=== PATIENT | female | born 2005 | race Caucasian/White ===

== ENCOUNTER 2023-03-25 15:23 | Outpatient (REF) | payer BC, OTHER, SELFPAY ==
--- NOTE | ~2023-03-25 | MR_ITS ---
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 Repetitive motion. Pain/discomfort in the shoulders bilaterally. COMPARISON: None. TECHNIQUE: MR images of the shoulder were obtained on a 1.5 Mihaela high-field strength scanner without intravenous contrast material. FINDINGS: ROTATOR CUFF: Rotator cuff is intact without significant tendinosis. Trace edema signal in the overlying subacromial subdeltoid bursa. No tears. No muscle atrophy or fatty infiltration. BICEPS: Normal CORACOACROMIAL ARCH: The undersurface of the acromion is curved with no subacromial spur. The acromioclavicular joint is normal. Trace edema signal in the subacromial subdeltoid bursa without significant fluid. LABRUM/CAPSULE: A cleft undercutting the anterosuperior glenoid labrum between the 1 o'clock position and 2 o'clock position is most consistent with a sublabral foramen. No discrete tears. The remainder the labrum is normal in appearance. Joint capsule is unremarkable. GLENOHUMERAL JOINT/MARROW: No fracture or malalignment. Marrow signal is normal. Articular cartilage appears well-preserved. No joint effusion or synovitis. No loose bodies. Humeral head is appropriately positioned at the glenohumeral joint. MR/MR shoulder LT wo con IMPRESSION: Trace edema signal in the subacromial subdeltoid bursa and subacromial subdeltoid bursa, potentially due to very mild bursitis. Otherwise normal MRI of the shoulder.
--- NOTE | ~2023-03-25 | MR_ITS ---
EXAMINATION: MR SHOULDER WITHOUT CONTRAST, RIGHT CLINICAL INFORMATION: Shoulder pain. Sports injury. Swimming. COMPARISON: None available. TECHNIQUE: MRI of the shoulder without contrast was performed on a high-field scanner. FINDINGS: ROTATOR CUFF: There is mild tendinosis of the supraspinatus, infraspinatus, and subscapularis. No tears. No muscle atrophy or fatty infiltration. BICEPS: Normal. CORACOACROMIAL ARCH: The undersurface of the acromion is curved with no subacromial spur. The acromioclavicular joint is normal. Trace subacromial subdeltoid bursitis. LABRUM/CAPSULE: There is a cleft undercutting the anterosuperior glenoid labrum, most consistent with a sublabral foramen. This does not extend below the 2 o'clock position. No discrete labral tears. Joint capsule is normal in signal intensity. GLENOHUMERAL JOINT/MARROW: Articular cartilage appears well-preserved. No fracture or malalignment. No joint effusion. Marrow signal is normal. MR/MR shoulder RT wo con IMPRESSION: 1. Mild rotator cuff tendinosis. No tears. 2. Trace subacromial subdeltoid bursitis.
== END 2023-03-25 15:24 | disposition home or self-care (01) ==
LOC: HO.MRI 15:23
PROVIDERS: Visit Provider Family Medicine Sports Medicine
DX: M25.511 Pain in right shoulder (principal); M25.512 Pain in left shoulder
CPT/HCPCS: 73221

== ENCOUNTER 2025-03-16 06:46 | Outpatient (REF) | payer BC, OTHER, SELFPAY ==
--- OUTSIDE RECORDS SUMMARY | 2019-12-14 10:00 | XMS_ITS | Continuity of Care Document ---
Author Organization [facility] Address [address] [place] [address] Phone Care Team Providers [facility] Shift Lead Name Role Phone Struebing PT, CMDT, CSCS, Ritesh Unavailable Unavailable Procedures Procedure Date Therapeutic Activities Therapeutic Exercise Neuromuscular Re-Ed Vasopneumatic Therapeutic Activities Vasopneumatic Neuromuscular Re-Ed Therapeutic Exercise Therapeutic Activities Neuromuscular Re-Ed Therapeutic Exercise Vasopneumatic Neuromuscular Re-Ed Therapeutic Activities Vasopneumatic Therapeutic Exercise Therapeutic Exercise Therapeutic Activities Vasopneumatic Neuromuscular Re-Ed Therapeutic Activities Neuromuscular Re-Ed Therapeutic Exercise Vasopneumatic Therapeutic Activities Neuromuscular Re-Ed Therapeutic Exercise Vasopneumatic Therapeutic Activities Neuromuscular Re-Ed Therapeutic Exercise Vasopneumatic Neuromuscular Re-Ed PT Evaluation Moderate Complexity Therapeutic Activities Therapeutic Exercise Vasopneumatic Advance Directives Directive Yes / No Effective Date File Name No Information Encounters Encounter Description Practice Location Reason(s) For Visit Diagnoses Date Provider Providers Copied on Encounter [facility], [address] [address], [place], [place], [id number], tel:[phone] Rambo Cuevas No Information Struebing Ritesh. . Referring Provider: Karthikeyan Lira, [address] [place] [address], [place], [address]. tel:[phone] [facility], [address] [address], [place], [place], [id number], tel:[phone] Rambo Cuevas No Information [place]ue[place] Ritesh. . Referring Provider: Karthikeyan Lira [address] [place] [address], [place], [address]. tel:[phone] [facility], [address] [address], [place], [place], [id number], tel:[phone] Rambo Cuevas No Information Strue[place] Ritesh. . Referring Provider: Karthikeyan Lira, [id number] [place] [address], [place], [address]. tel:[phone] [facility], [address] [address], [place], [place], [id number], tel:[phone] Rambo Cuevas No Information Strue[place] Ritesh. . Referring Provider: Karthikeyan Lira [address] [address], [place], [address]. tel:[phone] [facility], [address] [address], [place], [place], [id number], tel:[phone] Rambo Cuevas No Information Struebing Ritesh. . Referring Provider: Karthikeyan Lira, [id number] [place] [address], [place], [address]. tel:[phone] [facility], [address], [id number], tel:[phone] Rambo Cuevas No Information Struebing Ritesh. . Referring Provider: Karthikeyan Lira, [address] [place] [address], [place], [address]. tel:[phone] [facility], [address], [id number], tel:[phone] Rambo Cuevas No Information Struebing Ritesh. . Referring Provider: Karthikeyan Lira, [address] [place] [address], [place], [address]. tel:[phone] [facility], [address] [place] [address], [id number], tel:[phone] Rambo Cuevas No Information Struebing Ritesh. . Referring Provider: Karthikeyan Lira, [address] [place] [address], [place], [address]. tel:[phone] [facility], [address] [place] [address], [id number], tel:[phone] Rambo Cuevas No Information Struebing Ritesh. . Referring Provider: Karthikeyan Lira, [address] [place] [address], [place], [address]. tel:[phone] Family History Family Member Type Diagnosis Age At Onset No Information Payers Payer name Insurance type Covered libertarian ID Authormorris giron(s) [facility] [id number] Social History Type Description Quantity Date Captured Comments Sex Female Smoking Status No Information Chief Complaint And Reason For Visit No Information Reason For Referral Reason For Referral No Information History Of Present Illness Encounter Date Complaint History Of Prese nt Illness No Information Functional Status Date Functional Assessmen t No Information Instructions Date Instruction Additional Infor mation No Information Assessments Type Assessment Date No Information Patient Care Teams Name Effective Dates (start - stop) Status Members No Information
--- OUTSIDE RECORDS SUMMARY | 2024-11-16 10:26 | XMS_ITS | Continuity of Care Document ---
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 Name Role Phone Valeria Wodoard DPT Unavailable Unavailable Procedures Procedure Date Therapeutic Activities Neuromuscular Re-Ed Therapeutic Exercise Manual Therapy Therapeutic Activities Neuromuscular Re-Ed Therapeutic Exercise Manual Therapy Ultrasound Therapeutic Activities Neuromuscular Re-Ed Therapeutic Exercise Electrical Stimulation Therapeutic Activities Neuromuscular Re-Ed Therapeutic Exercise Manual Therapy Electrical Stimulation Therapeutic Activities Neuromuscular Re-Ed Therapeutic Exercise Manual Therapy Electrical Stimulation Therapeutic Activities Neuromuscular Re-Ed Therapeutic Exercise Manual Therapy Electrical Stimulation Therapeutic Activities Neuromuscular Re-Ed Therapeutic Exercise Manual Therapy Electrical Stimulation Therapeutic Activities Neuromuscular Re-Ed Therapeutic Exercise Manual Therapy Electrical Stimulation Therapeutic Activities Neuromuscular Re-Ed Therapeutic Exercise Manual Therapy Electrical Stimulation PT Evaluation Low Complexity Therapeutic Activities Therapeutic Exercise Neuromuscular Re-Ed Manual Therapy Therapeutic Activities Therapeutic Exercise Neuromuscular Re-Ed Therapeutic Activities Neuromuscular Re-Ed Therapeutic Exercise Progress Note Neuromuscular Re-Ed Therapeutic Exercise Therapeutic Activities Neuromuscular Re-Ed Therapeutic Exercise Therapeutic Activities Neuromuscular Re-Ed Therapeutic Activities Therapeutic Exercise Therapeutic Exercise Therapeutic Activities Neuromuscular Re-Ed Therapeutic Activities Neuromuscular Re-Ed Therapeutic Exercise Neuromuscular Re-Ed Therapeutic Activities Therapeutic Exercise Neuromuscular Re-Ed Therapeutic Exercise Therapeutic Activities Neuromuscular Re-Ed Therapeutic Exercise Therapeutic Activities Progress Note Therapeutic Exercise Neuromuscular Re-Ed Therapeutic Activities Neuromuscular Re-Ed Therapeutic Activities Therapeutic Exercise Therapeutic Activities Neuromuscular Re-Ed Therapeutic Exercise Neuromuscular Re-Ed Therapeutic Activities Therapeutic Exercise Therapeutic Activities Neuromuscular Re-Ed Therapeutic Exercise Neuromuscular Re-Ed Therapeutic Activities Therapeutic Exercise Therapeutic Activities Neuromuscular Re-Ed Therapeutic Exercise Therapeutic Exercise Therapeutic Activities Vasopneumatic Neuromuscular Re-Ed Neuromuscular Re-Ed Therapeutic Exercise Therapeutic Activities Therapeutic Activities Therapeutic Exercise Neuromuscular Re-Ed Therapeutic Activities Neuromuscular Re-Ed Therapeutic Exercise Therapeutic Activities Neuromuscular Re-Ed Therapeutic Exercise Neuromuscular Re-Ed Therapeutic Exercise Therapeutic Activities Progress Note Therapeutic Exercise Neuromuscular Re-Ed Therapeutic Activities Therapeutic Exercise Neuromuscular Re-Ed Therapeutic Activities Therapeutic Exercise Therapeutic Activities Neuromuscular Re-Ed Neuromuscular Re-Ed Therapeutic Exercise Therapeutic Activities Therapeutic Activities Neuromuscular Re-Ed Therapeutic Exercise Neuromuscular Re-Ed Therapeutic Activities Therapeutic Exercise Neuromuscular Re-Ed Therapeutic Activities Therapeutic Exercise Therapeutic Exercise Therapeutic Activities Neuromuscular Re-Ed Therapeutic Activities Neuromuscular Re-Ed Therapeutic Exercise Therapeutic Activities Neuromuscular Re-Ed Therapeutic Exercise Therapeutic Activities Neuromuscular Re-Ed Therapeutic Exercise Therapeutic Exercise Therapeutic Activities Neuromuscular Re-Ed Neuromuscular Re-Ed Therapeutic Activities Therapeutic Exercise Progress Note Therapeutic Activities Neuromuscular Re-Ed Therapeutic Exercise Neuromuscular Re-Ed Therapeutic Exercise Therapeutic Activities Neuromuscular Re-Ed Therapeutic Exercise Therapeutic Activities Therapeutic Activities Therapeutic Exercise Neuromuscular Re-Ed Therapeutic Activities Therapeutic Exercise Neuromuscular Re-Ed Therapeutic Exercise Neuromuscular Re-Ed Therapeutic Activities Therapeutic Activities Neuromuscular Re-Ed Therapeutic Exercise Neuromuscular Re-Ed Therapeutic Exercise Therapeutic Activities Therapeutic Exercise Therapeutic Activities Neuromuscular Re-Ed Therapeutic Activities Neuromuscular Re-Ed COVID-19 Additional Safety Supplies/Time Therapeutic Exercise Neuromuscular Re-Ed Therapeutic Activities Therapeutic Exercise COVID-19 Additional Safety Supplies/Time Therapeutic Exercise Therapeutic Activities Neuromuscular Re-Ed COVID-19 Additional Safety Supplies/Time Therapeutic Activities Progress Note Neuromuscular Re-Ed COVID-19 Additional Safety Supplies/Time Therapeutic Exercise Neuromuscular Re-Ed COVID-19 Additional Safety Supplies/Time Therapeutic Exercise Neuromuscular Re-Ed Therapeutic Exercise COVID-19 Additional Safety Supplies/Time Therapeutic Activities Neuromuscular Re-Ed Therapeutic Exercise COVID-19 Additional Safety Supplies/Time Therapeutic Activities Neuromuscular Re-Ed Therapeutic Exercise COVID-19 Additional Safety Supplies/Time Therapeutic Activities Therapeutic Exercise COVID-19 Additional Safety Supplies/Time Therapeutic Activities Neuromuscular Re-Ed Manual Therapy COVID-19 Additional Safety Supplies/Time Therapeutic Exercise Progress Note Neuromuscular Re-Ed Therapeutic Activities COVID-19 Additional Safety Supplies/Time Therapeutic Exercise Therapeutic Activities Neuromuscular Re-Ed Therapeutic Exercise Neuromuscular Re-Ed Therapeutic Activities Therapeutic Exercise Therapeutic Activities Neuromuscular Re-Ed Therapeutic Exercise Therapeutic Activities Manual Therapy Neuromuscular Re-Ed Therapeutic Exercise Neuromuscular Re-Ed Therapeutic Activities Therapeutic Exercise Manual Therapy Neuromuscular Re-Ed Therapeutic Activities Therapeutic Exercise Manual Therapy Neuromuscular Re-Ed Therapeutic Activities Therapeutic Exercise Vasopneumatic Therapeutic Activities Neuromuscular Re-Ed Manual Therapy Therapeutic Exercise Vasopneumatic Therapeutic Activities Neuromuscular Re-Ed Manual Therapy Therapeutic Exercise Neuromuscular Re-Ed Therapeutic Activities Therapeutic Exercise Manual Therapy Therapeutic Activities Progress Note Neuromuscular Re-Ed Vasopneumatic Therapeutic Exercise Manual Therapy Therapeutic Activities Therapeutic Exercise Manual Therapy Neuromuscular Re-Ed Hot or Cold Pack Therapeutic Activities Therapeutic Exercise Neuromuscular Re-Ed Therapeutic Activities Therapeutic Exercise Vasopneumatic Neuromuscular Re-Ed Neuromuscular Re-Ed Therapeutic Activities Therapeutic Exercise Manual Therapy Vasopneumatic 19 Therapeutic Activities 16 Neuromuscular Re-Ed 16 Therapeutic Exercise 16 Vasopneumatic 16 Manual Therapy 16 Therapeutic Activities 14 Manual Therapy 14 Therapeutic Exercise 14 Neuromuscular Re-Ed 14 Vasopneumatic 14 Neuromuscular Re-Ed Therapeutic Activities Manual Therapy Therapeutic Exercise Vasopneumatic Therapeutic Activities Therapeutic Exercise Neuromuscular Re-Ed Manual Therapy Vasopneumatic Neuromuscular Re-Ed Progress Note Therapeutic Activities Manual Therapy Therapeutic Exercise Vasopneumatic Neuromuscular Re-Ed Therapeutic Activities Therapeutic Exercise Vasopneumatic Manual Therapy Therapeutic Activities Neuromuscular Re-Ed Vasopneumatic Manual Therapy Therapeutic Exercise Therapeutic Exercise Therapeutic Activities Manual Therapy Neuromuscular Re-Ed Vasopneumatic Therapeutic Activities Therapeutic Exercise Manual Therapy Neuromuscular Re-Ed Vasopneumatic Therapeutic Activities Therapeutic Exercise Neuromuscular Re-Ed Vasopneumatic Manual Therapy Therapeutic Activities Therapeutic Exercise Neuromuscular Re-Ed Vasopneumatic Manual Therapy Therapeutic Activities Neuromuscular Re-Ed Manual Therapy Therapeutic Exercise Vasopneumatic Therapeutic Activities Therapeutic Exercise Manual Therapy Vasopneumatic 16 Neuromuscular Re-Ed 16 Therapeutic Activities Manual Therapy Neuromuscular Re-Ed Vasopneumatic Therapeutic Exercise Therapeutic Activities Therapeutic Exercise Neuromuscular Re-Ed Manual Therapy Vasopneumatic Therapeutic Activities Neuromuscular Re-Ed Therapeutic Exercise Therapeutic Activities Neuromuscular Re-Ed Therapeutic Exercise Vasopneumatic PT Evaluation Low Complexity Neuromuscular Re-Ed Vasopneumatic Therapeutic Exercise Advance Directives Directive Yes / No Effective Date File Name No Information Encounters Encounter Description Practice Location Reason(s) For Visit Diagnoses Date Provider Providers Copied on Encounter [facility], Formerly named [facility] [address] [address], [place], [place], [id number], [place] tel:[phone] [facility] No Information Vance Valeria. . Referring Provider: Maddie Hernandez, [address] [place], [address]. tel:[phone], [address] [address], [place], [place], [id number], [place] tel:[phone] [facility] No Information Vance Valeria. . Referring Provider: Maddie Hernandez, [address] [place], [address]. tel:[phone], [address] [address], [place], [place], [id number], [place] tel:[phone] [facility] No Information Vance Valeria. . Referring Provider: Maddie Hernandez, [address] [place], [address]. tel:[phone], [address], [id number], [place] tel:[phone] [facility] No Information Vance Valeria. . Referring Provider: Maddie Hernandez, [address] [place], [address]. tel:[phone], [address], [id number], [place] tel:[phone] [facility] No Information Vance Valeria. . Referring Provider: Maddie Hernandez, [address] [place], [address]. tel:[phone], [address], [id number], [place] tel:[phone] [facility] No Information Vance Valeria. . Referring Provider: Maddie Hernandez, [address] [place], [address]. tel:[phone], [address], [id number], [place] tel:[phone] [facility] No Information Vance Valeria. . Referring Provider: Maddie Hernandez, [address] [place], [address]. tel:[phone], [address], [id number], [place] tel:[phone] [facility] [place] [facility] No Information Vance Valeria. . Referring Provider: Maddie Hernandez, [address] [place], [address]. tel:[phone], [address], [id number], [place] tel:[phone] [facility] [place] [facility] No Information Vance Valeria. . Referring Provider: Maddie Hernandez, [address] [place], [address]. tel:[phone], [address], [id number], [place] tel:[phone] [facility] [place] [facility] No Information Vance Valeria. . Referring Provider: Maddie Hernandez, [address] [place], [address]. tel:[phone], [address], [id number], [place] tel:[phone] [facility] [place] [facility] No Information Vance Valeria. . Referring Provider: Maddie Hernandez, [address] [place], [address]. tel:[phone], [address], [id number], [place] tel:[phone] [facility] No Information Waldo Mendiola. . Referring Provider: Karthikeyan Lira, [address] [place], [address]. tel:[phone] [facility], [address], [id number], [place] tel:[phone] [facility] No Information Waldo Maury. . Referring Provider: Karthikeyan Lira, [address] [place] [address], [place], [address]. tel:[phone] [facility], [address], [id number], tel:[phone] [facility] [place] [address] No Information Waldo Maury. . Referring Provider: Karthikeyan Lira, [address] [place] [address], [address]. tel:[phone] [facility], [address] [place] [address], [id number], tel:[phone] [facility] No Information Waldo Maury. . Referring Provider: Karthikeyan Lira, [address] [place] [address], [address]. tel:[phone], [address], [id number], tel:[phone] [facility] No Information Waldo Maury. . Referring Provider: Karthikeyan Lira, [address] [place] [address], [address]. tel:[phone], [address] [place] [address], [id number], tel:[phone] [facility] No Information Waldo Maury. . Referring Provider: Karthikeyan Lira, [address] [place] [address], [address]. tel:[phone], Formerly named [facility] [address], [id number], tel:[phone] [facility] No Information Waldo Maury. . Referring Provider: Karthikeyan Lira, [address] [place] [address], [place], [address]. tel:[phone], [address], [id number], tel:[phone] [facility] No Information Waldo Maury. . Referring Provider: Karthikeyan Lira, [address] [place] [address], [place], [address]. tel:[phone] [facility], [address] [place] [address], [id number], tel:[phone] [facility] No Information Waldo Maury. . Referring Provider: Karthikeyan Lira, [address] [place] [address], [place], [address]. tel:[phone] [facility], [address], [id number], tel:[phone] [facility] No Information Waldo Maury. . Referring Provider: Karthikeyan Lira, [address] [place] [address], [place], [address]. tel:[phone] [facility], [address], [id number], tel:[phone] [facility] No Information Waldo Maury. . Referring Provider: Karthikeyan Lira, [address] [place] [address], [place], [address]. tel:[phone] [facility], [address], [id number], tel:[phone] [facility] No Information Waldo Maury. . Referring Provider: Karthikeyan Lira, [address] [place] [address], [place], [address]. tel:[phone] [facility], [address], [id number], tel:[phone] [facility] No Information Waldo Maury. . Referring Provider: Karthikeyan Lira, [address] [place] [address], [place], [address]. tel:[phone] [facility], [address], [id number], tel:[phone] [facility] No Information Waldo Maury. . Referring Provider: Karthikeyan Lira, [address] [place] [address], [place], [address]. tel:[phone] [facility], [address], [id number], tel:[phone] [facility] No Information Waldo Maury. . Referring Provider: Karthikeyan Lira, [address] [place] [address], [facility]. tel:[phone] [facility], [address], [id number], tel:[phone] [facility] No Information Waldo Maury. . Referring Provider: Karthikeyan Lira, [address] [place] [address], [facility]. tel:[phone] [facility], [address], [id number], tel:[phone] [facility] No Information Dee Rhoades. . Referring Provider: Karthikeyan Lira, [address] [place] [address], [address]. tel:[phone] [facility], [address], [id number], tel:[phone] [facility] No Information Dee Rhoades. . Referring Provider: Karthikeyan Lira, [address] [place] [address], [address]. tel:[phone] [facility], [address], [id number], tel:[phone] [facility] No Information Apr-14 -2021 Waldo Maury. . Referring Provider: Karthikeyan Lira, [address] [place] [address], [place], [address]. tel:[phone] [facility], [address], [id number], tel:[phone] [facility] No Information Waldo Maury. . Referring Provider: Karthikeyan Lira, [address] [place] [address], [place], [address]. tel:[phone] [facility], [address], [id number], [place] tel:[phone] [facility] No Information Waldo Maury. . Referring Provider: Karthikeyan Lira, [address] [place] [address], [place], [address]. tel:[phone] [facility], [address], [id number], tel:[phone] [facility] No Information Waldo Maury. . Referring Provider: Karthikeyan Lira, [address] [place] [address], [address]. tel:[phone] [facility], [address], [id number], tel:[phone] [facility] [place] [facility] No Information Waldo Maury. . Referring Provider: Karthikeyan Lira, [address] [place] [address], [address]. tel:[phone], [address], [id number], [place] tel:[phone] [facility] No Information Waldo Maury. . Referring Provider: Karthikeyan Lira, [address] [place] [address], [place], [address]. tel:[phone], [address], [id number], [place] tel:[phone] [facility] No Information Waldo Maury. . Referring Provider: Karthikeyan Lira, [address] [place] [address], [place], [address]. tel:[phone] [facility], [address], [id number], tel:[phone] [facility] No Information Waldo Maury. . Referring Provider: Karthikeyan Lira, [address] [place] [address], [place], [address]. tel:[phone] [facility], [address] [place] [address], [id number], tel:[phone] [facility] No Information Waldo Maury. . Referring Provider: Karthikeyan Lira, [address] [place] [address], [place], [address]. tel:[phone], [address], [id number], tel:[phone] [facility] [place] [facility] No Information Waldo Maury. . Referring Provider: Karthikeyan Lira, [address] [place] [address], [address]. tel:[phone], [address] [place] [address], [id number], tel:[phone] [facility] No Information Waldo Maury. . Referring Provider: Karthikeyan Lira, [address] [place] [address], [address]. tel:[phone], Formerly named [facility] [address], [id number], tel:[phone] [facility] No Information Waldo Maury. . Referring Provider: Karthikeyan Lira, [address] [place] [address], [place], [address]. tel:[phone], [address], [id number], tel:[phone] [facility] No Information Waldo Maury. . Referring Provider: Karthikeyan Lira, [address] [place] [address], [place], [address]. tel:[phone] [facility], [address] [place] [address], [id number], tel:[phone] [facility] No Information Waldo Maury. . Referring Provider: Karthikeyan Lira, [address] [place] [address], [address]. tel:[phone] [facility], [address], [id number], tel:[phone] [facility] No Information Waldo Maury. . Referring Provider: Karthikeyan Lira, [address] [place] [address], [address]. tel:[phone] [facility], [address], [id number], tel:[phone] [facility] No Information Waldo Maury. . Referring Provider: Karthikeyan Lira, [address] [place] [address], [address]. tel:[phone] [facility], [address], [id number], tel:[phone] [facility] No Information Waldo Maury. . Referring Provider: Karthikeyan Lira, [address] [place] [address], [address]. tel:[phone] [facility], [address], [id number], tel:[phone] [facility] No Information Waldo Maury. . Referring Provider: Karthikeyan Lira, [address] [place] [address], [address]. tel:[phone] [facility], [address], [id number], tel:[phone] [facility] No Information Waldo Maury. . Referring Provider: Karthikeyan Lira, [address] [place] [address], [address]. tel:[phone] [facility], [address], [id number], tel:[phone] [facility] No Information Waldo Maury. . Referring Provider: Karthikeyan Lira, [address] [place] [address], [address]. tel:[phone] [facility], [address], [id number], tel:[phone] [facility] No Information Waldo Maury. . Referring Provider: Karthikeyan Lira, [address] [place] [address], [place], [address]. tel:[phone] [facility], [address], [id number], tel:[phone] [facility] No Information Waldo Maury. . Referring Provider: Karthikeyan Lira, [address] [place] [address], [address]. tel:[phone] [facility], [address], [id number], tel:[phone] [facility] No Information Waldo Maury. . Referring Provider: Karthikeyan Lira, [address] [place] [address], [address]. tel:[phone], [address], [id number], tel:[phone] [facility] No Information Waldo Maury. . Referring Provider: Karthikeyan Lira, [address] [place] [address], [place], [address]. tel:[phone] [facility], [address], [id number], tel:[phone] [facility] No Information Waldo Maury. . Referring Provider: Karthikeyan Lira, [address] [place] [address], [place], [address]. tel:[phone], [address], [id number], tel:[phone] [facility] No Information Waldo Maury. . Referring Provider: Karthikeyan Lira, [address] [place] [address], [place], [address]. tel:[phone], [address], [id number], tel:[phone] [facility] No Information Waldo Maury. . Referring Provider: Karthikeyan Lira, [address] [place] [address], [place], [address]. tel:[phone] [facility], [address], [id number], tel:[phone] [facility] No Information Waldo Maury. . Referring Provider: Karthikeyan Lira, [address] [place] [address], [place], [address]. tel:[phone], [address], [id number], tel:[phone] [facility] No Information Waldo Maury. . Referring Provider: Karthikeyan Lira, [address] [place] [address], [place], [address]. tel:[phone], [address], [id number], tel:[phone] [facility] No Information Waldo Maury. . Referring Provider: Karthikeyan Lira, [address] [place] [address] [place], [address]. tel:[phone] [facility], [address], [id number], tel:[phone] [facility] No Information Waldo Maury. . Referring Provider: Karthikeyan Lira, [address] [place] [address], [place], [address]. tel:[phone] [facility], [address], [id number], tel:[phone] [facility] No Information Waldo Maury. . Referring Provider: Karthikeyan Lira, [address] [place] [address], [address]. tel:[phone] [facility], [address], [id number], tel:[phone] [facility] No Information Waldo Maury. . Referring Provider: Karthikeyan Lira, [address] [place] [address], [place], [address]. tel:[phone] [facility], [address], [id number], tel:[phone] [facility] No Information Waldo Maury. . Referring Provider: Karthikeyan Lira, [address] [place] [address], [address]. tel:[phone] [facility], [address], [id number], tel:[phone] [facility] No Information Waldo Maury. . Referring Provider: Karthikeyan Lira, [address] [place] [address], [place], [address]. tel:[phone] [facility], [address], [id number], tel:[phone] [facility] No Information Waldo Maury. . Referring Provider: Karthikeyan Lira, [address] [place] [address], [place], [address]. tel:[phone] [facility], [address] [place] [address], [id number], tel:[phone] [facility] No Information Waldo Maury. . Referring Provider: Karthikeyan Lira, [address] [place] [address], [place], [address]. tel:[phone] [facility], [address], [id number], tel:[phone] [facility] No Information Waldo Maury. . Referring Provider: Karthikeyan Lira, [address] [place] [address], [address]. tel:[phone] [facility], [address], [id number], tel:[phone] [facility] No Information Waldo Maury. . Referring Provider: Karthikeyan Lira, [address] [place] [address], [place], [address]. tel:[phone] [facility], [address], [id number], tel:[phone] [facility] No Information Waldo Maury. . Referring Provider: Karthikeyan Lira, [address] [place] [address] [place], [address]. tel:[phone] [facility], [address], [id number], tel:[phone] [facility] No Information Waldo Maury. . Referring Provider: Karthikeyan Lira, [address] [place] [address] [place], [address]. tel:[phone] Bag B[employer] Steal, [address], [id number], tel:[phone] [place] No Information Waldo Maury. . Referring Provider: Karthikeyan Lira, [address] [place] [address], [facility] [place], [address]. tel:[phone] [employer] Ste[employer], [address], [id number], tel:[phone] [place] No Information Waldo Maury. . Referring Provider: Karthikeyan Lira, [address] [place] [address] [facility] [place], [address]. tel:[phone] [employer] Ste[employer], [address], [id number], tel:[phone] [place] No Information Waldo Maury. . Referring Provider: Karthikeyan Lira, [address] [place] [address] [facility] [place], [address]. tel:[phone] [employer] Ste[employer], [address], [id number], tel:[phone] [place] No Information Waldo Maury. . Referring Provider: Karthikeyan Lira, [address] [place] [address] [facility] [place], [address]. tel:[phone] [employer], [address], [id number], tel:[phone] [place] No Information Waldo Maury. . Referring Provider: Karthikeyan Lira, [address] [place] [address] [facility] [place], [address]. tel:[phone] [employer], [address], [id number], tel:[phone] [place] No Information Waldo Maury. . Referring Provider: Karthikeyan Lira, [address] [place] [address], [address]. tel:[phone] [employer], [address], [id number], tel:[phone] [place] No Information Waldo Maury. . Referring Provider: Karthiekyan Lira, [address] [place] [address], [address]. tel:[phone], [address], [id number], tel:[phone] [place] No Information Waldo Maury. . Referring Provider: Karthikeyan Lira, [address] [place] [address], [place], [address]. tel:[phone] [employer], [address], [id number], tel:[phone] [place] No Information Waldo Maury. . Referring Provider: Karthikeyan Lira, [address] [place] [address], [place], [address]. tel:[phone] [employer], [address], [id number], tel:[phone] [place] No Information Alejandro Bone. . Referring Provider: Karthikeyan Lira, [address] [place] [address], [address]. tel:[phone] [employer], [address], [id number], tel:[phone] [place] No Information Waldo Maury. . Referring Provider: Karthikeyan Lira, [address] [place] [address], [address]. tel:[phone], [address], [id number], tel:[phone] [place] No Information Waldo Maury. . Referring Provider: Karthikeyan Lira, [address] [place] [address], [place], [address]. tel:[phone] Bag Borrow or Steal, Formerly named [facility] [address], [id number], tel:[phone] [place] No Information Waldo Maury. . Referring Provider: Karthikeyan Lira, [address] [place] [address], [place], [address]. tel:[phone] [employer] Steal, [address], [id number], [place] tel:[phone] [place] No Information Waldo Maury. . Referring Provider: Karthikeyan Lira, [address] [place] [address], [place], [address]. tel:[phone] [employer] Ste[employer], [address], [id number], tel:[phone] [place] No Information Waldo Maury. . Referring Provider: Karthikeyan Lira, [address] [place] [address], [address]. tel:[phone] [employer] Ste[employer], [address], [id number], tel:[phone] [place] No Information Waldo Maury. . Referring Provider: Karthikeyan Lira, [address] [place] [address], [address]. tel:[phone], [address], [id number], tel:[phone] [place] No Information Waldo Maury. . Referring Provider: Karthikeyan Lira, [address] [place] [address], [place], [address]. tel:[phone], [address], [id number], tel:[phone] [place] No Information Waldo Maury. . Referring Provider: Karthikeyan Lira, [address] [place] [address], [place], [address]. tel:[phone] [employer] Steal, [address], [id number], tel:[phone] [place] No Information Waldo Maury. . Referring Provider: Karthikeyan Lira, [address] [place] [address], [place], [address]. tel:[phone] [employer] Steal, [address], [id number], tel:[phone] [place] No Information Waldo Maury. . Referring Provider: Karthikeyan Lira, [address] [place] [address], [facility]. tel:[phone] Bag Borrow or Steal, [address], [id number], tel:[phone] [employer] No Information Waldo Maury. . Referring Provider: Karthikeyan Lira, [address] [place] [address], [address]. tel:[phone] Bag [employer]orrow or Steal, [address], [id number], tel:[phone] [place] [address] No Information Waldo Maury. . Referring Provider: Karthikeyan Lira, [address] [place] [address], [address]. tel:[phone] [employer] Steal, [address], [id number], tel:[phone] [place] No Information Waldo Maury. . Referring Provider: Karthikeyan Lira, [address] [place] [address], [place], [address]. tel:[phone], [address], [id number], tel:[phone] [place] [address] No Information Wlado Maury. . Referring Provider: Karthikeyan Lira, [address] [place] [address], [place], [address]. tel:[phone] Bag [employer]orrow [employer] Steal, [address] [place] [address], [id number], tel:[phone] [place] No Information Waldo Maury. . Referring Provider: Karthikeyan Lira, [address] [place] [address], [place], [address]. tel:[phone] [employer] Steal, [address] [place] [address], [id number], tel:[phone] [place] [address] No Information Waldo Maury. . Referring Provider: Karthikeyan Lira, [address] [place] [address], [facility]. tel:[phone] Bag Borrow [employer] Steal, [address] [place] [address], [id number], tel:[phone] [employer] No Information Waldo Maury. . Referring Provider: Karthikeyan Lira, [address] [place] [address] [place], [address]. tel:[phone] [employer] Ste[employer], [address] [place] [address], [id number], tel:[phone] [employer] No Information Jeremías De Los Santos. . Referring Provider: Karthikeyan Lira, [address] [place] [address] [place], [address]. tel:[phone] [employer] Steal, [address] [place] [address], [id number], tel:[phone] [place] [address] No Information Waldo Maury. . Referring Provider: Karthikeyan Lira, [address] [place] [address] [place], [address]. tel:[phone] Bag Borrow [employer] Steal, [address] [place] [address], [place], [id number], tel:[phone] [facility] No Information Waldo Mendiola. . Referring Provider: Karthikeyan Lira, [address] [place], [address]. tel:[phone] Family History Family Member Type Diagnosis Age At Onset No Information Payers Payer name Insurance type Covered libertarian ID Mohit giron(s) [facility] [id number] Specialty Insurance CI [id number] Social History Type Description Quantity Date Captured [...]
--- NOTE | ~2025-03-16 | US_ITS ---
EXAMINATION: US THYROID CLINICAL INFORMATION: Thyroid nodule. COMPARISON: None available. TECHNIQUE: Linear transducer grayscale and color Doppler examination with attention to the region of the thyroid. FINDINGS: SIZE: Measurements of the thyroid lobes and nodules are given in sagittal, anteroposterior and transverse dimensions respectively. Right Thyroid Lobe: 4.6 x 1.5 x 1.1 cm, volume 4.0 mL. Parenchyma: The gland echotexture is heterogeneous. Thyroid vascularity is normal. Left Thyroid Lobe: 4.1 x 1.7 x 1.9 cm, volume 6.9 mL. Parenchyma: The gland echotexture is heterogeneous. Thyroid vascularity is normal. Isthmus: 0 point cm in maximum AP dimension. Estimated total number of nodules greater than or equal to 1 cm: 0. Spindraw Operator nodules are described as follows: NODES: No lymphadenopathy is seen in the tissue surrounding the thyroid gland. US/US thyroid IMPRESSION: ACR TI RADS category 0. Heterogeneous thyroid gland without dominant nodule. ACR TI-RADS RECOMMENDATION REFERENCE: Ultrasound-guided fine-needle aspiration, followup ultrasound, no further follow up. * TR1 (0 point) and TR2 (2 points): No FNA or follow up. * TR3 (3 points): FNA if more than or equal to 2.5 cm in maximum dimension, followup ultrasound in 1, 3 and 5 years if 1.5 to 2.4 cm in maximum dimension. * TR4 (4-6 points): FNA if more than or equal to 1.5 cm in maximum dimension, followup ultrasound in 1, 2, 3 and 5 years if 1 to 1.4 cm in maximum dimension. * TR5 (more than or equal to 7 points): FNA if more than or equal to 1 cm in maximum dimension, followup ultrasound every year for 5 years if 0.5 to 0.9 cm in maximum dimension. * TR3, TR4 or TR5 nodules that are below the size threshold for followup receive no follow up. Electronically signed by: Austen Morgan MD 03/16/2025 12:18 PM TOBIAS
--- OUTSIDE RECORDS SUMMARY | 2025-03-16 06:48 | XMS_ITS | Clinical Summary ---
Author Organization [facility] Address [address] [place] [address] Care Team Providers Care Sintering Plant Supervisor Name Role Phone Unavailable Primary Care Provider Unavailabl e Allergies No known active allergies Medications Sulfacetamide Sodium, Acne, (KLARON) 10 % External Lotion Apply to acne-prone areas qAM 118 mL 4 7 Active adapalene 0.1 % External Cream Apply a pea-sized amount to entire face qHS as tolerated 45 g 4 7 Active Doxycycline Hyclate 100 MG Oral Tab TAKE 1 TABLET BY MOUTH TWICE DAILY 60 tablet 9 Active Levocetirizine Dihydrochloride (XYZAL ALLERGY 24HR OR) Take 1 tablet by mouth. Active Active Problems No known active problems Social History Tobacco Use Types Packs/Day Years Used Date Smoking Tobacco: Never Smokeless Tobacco: Never Comments Unknown Sex and Gender Information Value Date Recorded Sex Assigned at Not on file Legal Sex Female 12:02 PM COAL CONVEYOR OPERATOR Gender Identity Not on file Sexual Orientation Not on file Last Filed Vital Signs Vital Sign Reading Time Taken Comments Blood Pressure 110/70 04/02/2021 5:57 PM COAL CONVEYOR OPERATOR Pulse 78 04/02/2021 5:57 PM COAL CONVEYOR OPERATOR Temperature 37.4 C (99.4 F) 04/02/2021 5:57 PM COAL CONVEYOR OPERATOR Respiratory Rate 16 04/02/2021 5:57 PM COAL CONVEYOR OPERATOR Oxygen Saturation 98% 04/02/2021 5:57 PM COAL CONVEYOR OPERATOR Inhaled Oxygen Concentration - - Weight 70.2 kg (154 lb 12.8 oz) 04/02/2021 5:57 PM COAL CONVEYOR OPERATOR Height 170.2 cm (5' 7 ) 04/02/2021 5:57 PM COAL CONVEYOR OPERATOR Body Mass Index 24.25 04/02/2021 5:57 PM COAL CONVEYOR OPERATOR Plan of Treatment Health Maintenance Due Date Last Done Comments Annual Physical 2003 MMR Vaccines (1 of 1 - Stand lore series) 2004 Annual Depression Screen 2015 Varicella Vaccines (1 of 2 - 13+ 2-dose series) 2016 HPV Vaccines (1 - 3-dose series) 2018 Meningococcal B Vaccine (1 o f 2 - Standard) 2019 DTaP,Tdap,and Td Vaccines (1 - Tdap) 2022 Hepatitis B Vaccines (1 of 3 - 19+ 3-dose series) 2022 Pap Smear,3 Years 2024 COVID-19 Vaccine (1 - 2024-2 6 season) 2024 Influenza Vaccine (#1) 2025 Hepatitis A Vaccines Aged Out No long er eligible based on patient's age to complete this topic Meningococcal Vaccine Aged Out No alessia reva eligible based on patient's age to complete this topic Pneumococcal Vaccine: to 49yrs Aged Out No longer eligible b ased on patient's age to complete this topic Insurance [facility]
--- OUTSIDE RECORDS SUMMARY | 2025-03-16 06:48 | XMS_ITS | Encounter Summary ---
Author Organization [facility] Address [address] [place] [address] Care Team Providers Care Baseboard Heating Installer Name Role Phone Manolo Lin MD Primary Care Provider [phone] Slick Ruiz MD Unavailable [phone] Source Comments In the event that this information is protected by federal Confidentiality ofSubstance Use DisorderPatient Records, 42 CFR Part 2 prohibits theunauthorized disclosure of these records.[facility] Encounter Details Date Type Department Care Team (Late st Contact Info) Description 09/11/2016 Procedure Pass [place] Orthopaedic Surgery [address] [place] [id number] Social History Tobacco Use Types Packs/Day Years Used Date Smoking Tobacco: Never Alcohol Use Standard Drinks/Week Comments No 0 (1 standard drink = 0.6 oz pur e alcohol) Comments No Sex and Gender Information Value Date Recorded Sex Assigned at Not on file Legal Sex Female 4:17 AM CDT Gender Identity Not on file Sexual Orientation Not on file documented as of this encounter Plan of Treatment Not on file documented as of this encounter Visit Diagnoses Not on filedocumented in this encounter Additional Health Concerns Infection Onset Date Last Indicated Resolved Time Rule-out COVID-19 12/18/2020 12/18/2020 12/18/2020 2:33 PM CDT documented as of this encounter Care Teams Baseboard Heating Installer Relationship Specialty Start Date End Date Manolo Lin MD [address] [facility] [address] [place], [place] [id number] PCP - General Pediatrics 05/30/11 [place] [address] [address] System Generated Attributed Clinician 01/23/24 documented as of this encounter
--- OUTSIDE RECORDS SUMMARY | 2025-03-16 06:48 | XMS_ITS | Encounter Summary ---
Author Organization [facility] Address [address] [place] [address] Care Team Providers Care Shower Maid Name Role Phone Manolo Lin MD Primary Care Provider [phone] Slick Ruiz MD Unavailable [phone] Source Comments In the event that this information is protected by federal Confidentiality ofSubstance Use DisorderPatient Records, 42 CFR Part 2 prohibits theunauthorized disclosure of these records.[facility] Encounter Details Date Type Department Care Team (Late st Contact Info) Description 08/20/2016 Procedure Pass [place] Radiology [address] [place] [address] Social History Tobacco Use Types Packs/Day Years [...] documented as of this encounter Care Teams Shower Maid Relationship Specialty Start Date End Date Manolo Lin MD [address] [facility] [address] [place], [place] [id number] PCP - General Pediatrics 05/30/11 [place] [address] [address] System Generated Attributed Clinician 01/23/24 documented as of this encounter
--- OUTSIDE RECORDS SUMMARY | 2025-03-16 06:49 | XMS_ITS | Encounter Summary ---
Author Organization [facility] Address [address] [place] [address] Care Team Providers Care Assistant County Engineer Name Role Phone Manolo Lin MD Primary Care Provider [phone] Slick Ruiz MD Unavailable [phone] Source Comments In the event that this information is protected by federal Confidentiality ofSubstance Use DisorderPatient Records, 42 CFR Part 2 prohibits theunauthorized disclosure of these records.[facility] Encounter Details Date Type Department Care Team (Late st Contact Info) Description 10/21/2024 Questionnaire Series Submission Initial Department [address] [place], [place] [id number] Provider Sarah Vyas DO NOT EDIT THIS RECORD!!! DO NOT CLICK THE EDIT BUTTON ABOVE!!! Social History Tobacco Use Types Packs/Day Years Used Date Smoking Tobacco: Never Smokeless Tobacco: Never Alcohol Use Standard Drinks/Week Comments [...] Diagnoses Not on filedocumented in this encounter Care Teams Assistant County Engineer Relationship Specialty Start Date End Date Manolo Lin MD [address] [facility] 100 [place], [place] [id number] PCP - General Pediatrics 05/30/11 [place] [address] [address] [phone] System Generated Attributed Clinician 01/23/24 documented as of this encounter
--- OUTSIDE RECORDS SUMMARY | 2025-03-16 06:49 | XMS_ITS | Encounter Summary ---
Author Organization [facility] Address [address] [address] Phone Care Team Providers Care Clinical Research Scientist Name Role Phone Pcp, Unknown Primary Care Provider Unavailabl e Reason for Referral * MRI/CAT Scan - Closed Specialty Diagnoses / Procedures Referred By Contac t Referred To Contact Radiology Diagnoses Left knee pain, unspecified chronicity Other instability, left knee Procedures MRI Knee (Left) CHG MRI LOWER EXTREM JT, W/O CONTRAST CHG MRI, JOINT OF LEG W/CONTRAST CHG MRI, JOINT OF LEG. Maddie Rojo MD [address] [place] [address] Phone: tel: fax: [email or web address] Referral ID Status Reason Start Date Expiration Date Visits Re quested Visits Authorized [id number] Closed 06/09/2024 08/07/2024 1 1 Encounter Details Date Type Department Care Team (Late st Contact Info) Description 06/09/2024 Transcribe Orders Virtual Department [address] [place] [address] Maddie Hernandez MD [address] [place] [address] [email or web address] Left knee pain, unspecified chronicity (Primary Dx); Other instability, left knee Social History Tobacco Use Types Packs/Day Years Used Date Smoking Tobacco: Never Assessed Education Answer Date Recorded Are you interested in more education? Not on elizabeth e 06/10/2024 Are you concerned about learning? Not on file 06/10/2024 No 06/10/2024 No 06/10/2024 Digital Access Answer Date Recorded No 06/10/2024 No 06/10/2024 Reliable internet access at home? Not on file 06/10/2024 Device with a working camera? Not on file Comments Unknown Sex and Gender Information Value Date Recorded Sex Assigned at Not on file Legal Sex Female 2:59 PM EST Gender Identity Not on file Sexual Orientation Not on file documented as of this encounter Plan of Treatment Not on file documented as of this encounter Results * MRI KNEE WITHOUT CONTRAST (LEFT) (06/14/2024 8:28 AM EST) Anatomical Region Laterality Modality Knee Left Magnetic Resonan ce 06/15/2024 3:29 PM EST Impressions 06/15/2024 3:40 PM EST 1. Postoperative changes status post ACL repair. Intact graft. 2. Low-grade MCL sprain. 3. No evidence of meniscal tear. Narrative 06/15/2024 3:40 PM EST MRI KNEE WITHOUT CONTRAST (LEFT) Referring clinician's provided indication for this examination in Epic: Outside Radiology Order; left knee pain Additional clinical information obtained from EMR: Left knee pain x3 weeks noted with exercise and changes of direction. ACL surgery 2019. TECHNIQUE: Multi-sequence, multi-planar MRI of the knee without intravenous contrast. COMPARISON: No prior knee imaging available. FINDINGS: Medial Compartment: Meniscus is intact with uniform low signal. No meniscal tear. No cartilage defect or subchondral edema. Lateral Compartment: No meniscal tear. No cartilage defect or subchondral edema. Patellofemoral Compartment: Mild focal signal alteration affects hyaline cartilage overlying the medial facet. No measurable cartilage defect. No subchondral edema. Tendons: Normal. Quadriceps, patellar, and popliteus tendons are intact. Ligaments: Postoperative changes status post ACL repair. Expected post procedural signal alteration within anterior aspect of the medial tibial plateau and posterior lateral aspect of the lateral femoral condyle. ACL graft is taut with no evidence of fiber disruption. Normal low signal PCL. Mild MCL thickening and trace adjacent fluid. No fiber disruption. Intact lateral collateral ligament complex. Bones: Bony signal changes related to ACL graft distraction plugs. No fracture. No marrow edema/bone bruise. Joint: Trace effusion. No popliteal fossa cyst. Procedure Note Luis Eduardo Salguero MD - 06/15/2024 MRI KNEE WITHOUT CONTRAST (LEFT) Referring clinician's provided indication for this examination in Epic:Outside Radiology Order; left knee pain Additional clinical information obtained from EMR: Left knee pain x3 weeksnoted with exercise and changes of direction. ACL surgery 2019. TECHNIQUE: Multi-sequence, multi-planar MRI of the knee withoutintravenous contrast. COMPARISON: No prior knee imaging available. FINDINGS: Medial Compartment: Meniscus is intact with uniform low signal. Nomeniscal tear. No cartilage defect or subchondral edema. Lateral Compartment: No meniscal tear. No cartilage defect or subchondraledema. Patellofemoral Compartment: Mild focal signal alteration affects hyalinecartilage overlying the medial facet. No measurable cartilage defect. Nosubchondral edema. Tendons: Normal. Quadriceps, patellar, and popliteus tendons are intact. Ligaments: Postoperative changes status post ACL repair. Expected postprocedural signal alteration within anterior aspect of the medial tibialplateau and posterior lateral aspect of the lateral femoral condyle. ACLgraft is taut with no evidence of fiber disruption. Normal low signal PCL.Mild MCL thickening and trace adjacent fluid. No fiber disruption. Intactlateral collateral ligament complex. Bones: Bony signal changes related to ACL graft distraction plugs. Nofracture. No marrow edema/bone bruise. Joint: Trace effusion. No popliteal fossa cyst. IMPRESSION: 1. Postoperative changes status post ACL repair. Intact graft. 2. Low-grade MCL sprain. 3. No evidence of meniscal tear. Maddie Hernandez MD IM MR EXTREMITY Final Result documented in this encounter Visit Diagnoses Diagnosis Left knee pain, unspecified chronicity- Primary Other instability, left knee Left knee pain, unspecified chronicity Other instability, left knee documented in this encounter Care Teams Clinical Research Scientist Relationship Specialty Start Date End Date Pcp, Unknown PCP - General 06/10/24 documented as of this encounter Additional Source Comments The information contained in this document represents components of the legal health record. It is not the complete legal health record.[facility]
--- OUTSIDE RECORDS SUMMARY | 2025-03-16 06:49 | XMS_ITS | Encounter Summary ---
Author Organization [facility] Address [address] [place] [address] Care Team Providers Care Hinging Machine Operator Name Role Phone Manolo Lin MD Primary Care Provider [phone] Slick Ruiz MD Unavailable [phone] Source Comments In the event that this information is protected by federal Confidentiality ofSubstance Use DisorderPatient Records, 42 CFR Part 2 prohibits theunauthorized disclosure of these records.[facility] Encounter Details Date Type Department Care Team (Late st Contact Info) Description 07/27/2020 Orders Only Covid Vaccine Administration - [facility] Pam Ragland MD USED FOR COVID-19 Social History Tobacco Use Types Packs/Day Years [...] documented as of this encounter Care Teams Hinging Machine Operator Relationship Specialty Start Date End Date Manolo Lin MD [address] [facility] [address] [place], [place] [phone] PCP - General Pediatrics 05/30/11 [place] [address] [address] System Generated Attributed Clinician 01/23/24 documented as of this encounter
--- OUTSIDE RECORDS SUMMARY | 2025-03-16 06:49 | XMS_ITS | Encounter Summary ---
Author Organization [facility] Address [address] [address] Phone Care Team Providers Care Marketing Producer Name Role Phone Pcp, Unknown Primary Care Provider Unavailabl e Encounter Details Date Type Department Care Team (Late st Contact Info) Description 06/09/2024 Procedure Pass [address] [place] [address] Social History Tobacco Use Types Packs/Day Years [...] a working camera? Not on file Comments No Sex and Gender Information Value Date Recorded Sex Assigned at Not on file Legal Sex Female 2:59 PM EST Gender Identity Not on file Sexual Orientation Not on file documented as of this encounter Last Filed Vital Signs Vital Sign Reading Time Taken Comments Blood Pressure - - Pulse - - Temperature - - Respiratory Rate - - Oxygen Saturation - - Inhaled Oxygen Concentration - - Weight 68 kg (150 lb) 06/10/2024 6:51 PM EST Height 170.2 cm (5' 7 ) 06/10/2024 6:51 PM EST Body Mass Index 23.49 06/10/2024 6:51 PM EST documented in this encounter Plan of Treatment Not on file documented as of this encounter Visit Diagnoses Not on filedocumented in this encounter Care Teams Marketing Producer Relationship Specialty Start Date End Date Pcp, Unknown PCP - General 06/10/24 documented as of this encounter Additional Source Comments The information contained in this document represents components of the legal health record. It is not the complete legal health record.[facility]
--- OUTSIDE RECORDS SUMMARY | 2025-03-16 06:49 | XMS_ITS | Encounter Summary ---
Author Organization [facility] Address [address] [place] [address] Care Team Providers Care Commercial Drone Software Developer Name Role Phone Manolo Lin MD Primary Care Provider [phone] Slick Ruiz MD Unavailable Source Comments In the event that this information is protected by federal Confidentiality ofSubstance Use DisorderPatient Records, 42 CFR Part 2 prohibits theunauthorized disclosure of these records.[facility] Encounter Details Date Type Department Care Team (Late st Contact Info) Description 09/05/2024 Questionnaire Series Submission Initial Department [address] [place], [place] [phone] Provider Sarah Vyas DO NOT EDIT THIS [...] on filedocumented in this encounter Care Teams Commercial Drone Software Developer Relationship Specialty Start Date End Date Manolo Lin MD [address] [facility] 100 [place], [place] [id number] PCP - General Pediatrics 05/30/11 [place] [address] [address] [phone] System Generated Attributed Clinician 01/23/24 documented as of this encounter
--- OUTSIDE RECORDS SUMMARY | 2025-03-16 06:49 | XMS_ITS | Encounter Summary ---
Author Organization [facility] Address [address] [place] [address] Care Team Providers Care Radial Router Operator Name Role Phone Manolo Lin MD Primary Care Provider [phone] Slick Ruiz MD Unavailable [phone] Source Comments In the event that this information is protected by federal Confidentiality ofSubstance Use DisorderPatient Records, 42 CFR Part 2 prohibits theunauthorized disclosure of these records.[facility] Reason for Referral * MRI/CAT Scan (Routine) - Closed Specialty Diagnoses / Procedures Referred By Contac t Referred To Contact Radiology Diagnoses Acute pain of left knee Patellofemoral pain syndrome of left knee Procedures MRI Knee Left [place] [address] [address] [address] Phone: tel: fax: Referral ID Status Reason Start Date Expiration Date Visits Re quested Visits Authorized [id number] Closed 10/21/2024 12/19/2024 1 1 Reason for Visit * Reason Comments Orders Needed Encounter Details Date Type Department Care Team (Late st Contact Info) Description 10/21/2024 Telephone MD Orthopaedic Surgery [address] [place] [address] [place] [address] [address] [address] Orders Needed Social History Tobacco Use Types Packs/Day Years [...] on file documented as of this encounter Miscellaneous Notes * Telephone Encounter - Merry Kelley - 10/21/2024 11:06 AM CDT Patient needs a provider order for MRI of LT knee with contrast Requesting test to be done at the following Facility at MD documented in this encounter Plan of Treatment Not on file documented as of this encounter Results * MRI Knee Left without Contrast (11/01/2024 11:12 AM CDT) Anatomical Region Laterality Modality Knee Left Magnetic Resonan ce 11/02/2024 9:18 AM CDT Narrative 11/02/2024 9:34 AM CDT MR LEFT KNEE HISTORY: Left knee pain. Anterior knee pain. Patellofemoral syndrome. History of prior ACL reconstruction. COMPARISON: 11/19/2019 TECHNIQUE: Multiplanar, multisequence MR imaging of the left knee was obtained without intravenous contrast. FINDINGS: LIGAMENTS: ACL: ACL graft appears intact. Mild cystic changes within the tibial tunnel. Small focal nodular intermediate to low signal anterior to the ACL and anterior aspect of the notch for example series 5 image 15; 20 suspicious for small amount of scarring or arthrofibrosis. PCL: Intact MCL: Intact LCL complex: Intact MENISCI AND FEMORAL-TIBIAL HYALINE CARTILAGE: Medial meniscus: No tear identified. Lateral meniscus: No tear identified. No focal chondral defect identified. PATELLOFEMORAL JOINT AND EXTENSOR MECHANISM: Quadriceps and patellar tendons appear intact. Mild heterogeneity of the patellar tendon likely in part related to prior postoperative change and/or tendinosis. No focal patellofemoral compartment chondral defect identified. Susceptibility artifact near the medial femoral trochlea limits evaluation. OSSEOUS/BONE MARROW: No fracture identified. No focal marrow edema or contusion. GENERAL: Trace nonexpansile suprapatellar effusion. No Thorpe's cyst distention. IMPRESSION: Status post ACL reconstruction. Intact ACL graft. Small nodular signal alteration anterior to the distal ACL and near the anterior aspect of the intercondylar notch suspicious for scarring or localized arthrofibrosis. No focal patellofemoral compartment chondral defect identified. FINAL REPORT Attending Radiologist: Arnol Robles MD Date Signed Off: 11/02/2024 09:34 Procedure Note Arnol Robles MD - 11/02/2024 MR LEFT KNEE HISTORY: Left knee pain. Anterior knee pain. Patellofemoral syndrome.History of prior ACL reconstruction. COMPARISON: 11/19/2019 TECHNIQUE: Multiplanar, multisequence MR imaging of the left knee wasobtained without intravenous contrast. FINDINGS: LIGAMENTS: ACL: ACL graft appears intact. Mild cystic changes within the tibialtunnel. Small focal nodular intermediate to low signal anterior to theACL and anterior aspect of the notch for example series 5 image 15; 4/20suspicious for small amount of scarring or arthrofibrosis. PCL: Intact MCL: Intact LCL complex: Intact MENISCI AND FEMORAL-TIBIAL HYALINE CARTILAGE: Medial meniscus: No tear identified. Lateral meniscus: No tear identified. No focal chondral defect identified. PATELLOFEMORAL JOINT AND EXTENSOR MECHANISM: Quadriceps and patellar tendons appear intact. Mild heterogeneity of thepatellar tendon likely in part related to prior postoperative changeand/or tendinosis. No focal patellofemoral compartment chondral defectidentified. Susceptibility artifact near the medial femoral trochlealimits evaluation. OSSEOUS/BONE MARROW: No fracture identified. No focal marrow edema or contusion. GENERAL: Trace nonexpansile suprapatellar effusion. No Thorpe's cyst distention. IMPRESSION: Status post ACL reconstruction. Intact ACL graft. Small nodular signal alteration anterior to the distal ACL and near theanterior aspect of the intercondylar notch suspicious for scarring orlocalized arthrofibrosis. No focal patellofemoral compartment chondral defect identified. FINAL REPORT Attending Radiologist: Arnol Robles MD Date Signed Off: 11/02/2024 09:34 Karthikeyan Lira MD IMG MRI ORDERABLES Final Result documented in this encounter Visit Diagnoses Diagnosis Acute pain of left knee- Primary Patellofemoral pain syndrome of left knee Acute pain of left knee Patellofemoral pain syndrome of left knee documented in this encounter Care Teams Radial Router Operator Relationship Specialty Start Date End Date Manolo Lin MD [address] [address] PCP - General Pediatrics 05/30/11 [place] [address] [address] [facility] [address] [place] [phone] System Generated Attributed Clinician 01/23/24 documented as of this encounter
--- OUTSIDE RECORDS SUMMARY | 2025-03-16 06:49 | XMS_ITS | Encounter Summary ---
Author Organization [facility] Address [address] [place] [address] Care Team Providers Care Bi Application Developer Name Role Phone Manolo Lin MD Primary Care Provider [phone] Slick Ruiz MD Unavailable [phone] Source Comments In the event that this information is protected by federal Confidentiality ofSubstance Use DisorderPatient Records, 42 CFR Part 2 prohibits theunauthorized disclosure of these records.[facility] Encounter Details Date Type Department Care Team (Latest Contact Info) Description 11/28/2019 FS Transcribe Orders [place] Orthopaedic Surgery [address] [place] [address] [place] [address] [address] Rupture of anterior cruciate ligament of left knee, initial encounter (Primary Dx) Social History Tobacco Use Types Packs/Day Years [...] documented as of this encounter Visit Diagnoses Diagnosis Rupture of anterior cruciate ligament of left knee, initial encounter- Primary documented in this encounter Additional Health Concerns Infection Onset Date Last Indicated Resolved Time Rule-out COVID-19 12/18/2020 12/18/2020 12/18/2020 2:33 PM CDT documented as of this encounter Care Teams Bi Application Developer Relationship Specialty Start Date End Date Manolo Lin MD [address] [facility] [address] [place], [place] [phone] PCP - General Pediatrics 05/30/11 [place] [address] [address] [facility] 100 [place] [address] System Generated Attributed Clinician 01/23/24 documented as of this encounter
--- OUTSIDE RECORDS SUMMARY | 2025-03-16 06:49 | XMS_ITS | Clinical Summary ---
Author Organization [facility] Address [address] [address] Phone Care Team Providers Care Career Development Coordinator/Teacher Name Role Phone Pcp, Unknown Primary Care Provider Unavailabl e Allergies No known active allergies Medications cyclobenzaprine (FLEXERIL) 5 MG tablet Take 5-10 mg by mouth. 11/26/2023 Active Active Problems No known active problems Encounters Date Type Department Care Team Description 02/06/2025 9:25 PM EDT - 02/06/2025 11:59 PM EDT Hospital Encounter [address] [address] Maddie Hernandez MD Discharge Disposition: Home or Self Care 01/30/2025 Procedure Pass [address] [address] 01/30/2025 Transcribe Orders Virtual Department [address] [place] [id number] Maddie Hernandez MD Low back pain, unspecified back pain laterality, unspecified chronicity, unspecified whether sciatica present (Primary Dx) from Last 3 Months Social History Tobacco Use Types Packs/Day Years [...] Sign Reading Time Taken Comments Blood Pressure 109/71 06/12/2024 3:25 PM EST Pulse 75 06/12/2024 3:25 PM EST Temperature 36.4 C (97.5 F) 06/12/2024 3:25 PM EST Respiratory Rate - - Oxygen Saturation - - Inhaled Oxygen Concentration - - Weight 68 kg (150 lb) 06/10/2024 6:51 PM EST Height 170.2 cm (5' 7 ) 06/10/2024 6:51 PM EST Body Mass Index 23.49 06/10/2024 6:51 PM EST Plan of Treatment Health Maintenance Due Date Last Done Comments Adult Td,Tdap Booster 2003 COMBINED DTaP,Tdap,Td (1 - Tdap) 2010 DEPRESSION SCREENING 2015 SMOKING Hx and SMOKELESS TOBACCO SCREENING 2016 HPV VACCINES (1 - 3-dose series) 2018 CHLAMYDIA SCREENING 2019 MENINGOCOCCAL VACCINES (B) ( 1 of 2 - Standard) 2019 ADOLESCENT UNIVERSAL LIPID SCREENING 2020 HEPATITIS C SCREENING 2021 HIV ONE-TIME SCREENING (18-6 5 YEARS) 2021 PAP SMEAR 2024 INFLUENZA VACCINE (#1) 2024 , 02/11/2023, 01/22/2022 COVID-19 VACCINE ( - 2024-2 6 season) 2024 PNEUMOCOCCAL VACCINES (0-49 years) Aged Out 2003, 2003 No longer eligible based on patient's age to complete this topic MMR VACCINES Completed 04/22/2004 HEPATITIS A VACCINES Aged Out No long er eligible based on patient's age to complete this topic HIB VACCINES Aged Out No longer eligi ble based on patient's age to complete this topic MENINGOCOCCAL VACCINES (ACWY) Aged Out No longer eligible based on patient's age to complete this topic Medical Devices Not on file Procedures Procedure Name Priority Date/Time Associated Diagnosis Comments MRI CERVICAL SPINE (NEURO) FOCUS WITHOUT CONTRAST Routine 02/06/2025 10:37 PM EDT Low back pain, unspecified back pain laterality, unspecified chronicity, unspecified whether sciatica present from Last 3 Months Results * MRI CERVICAL SPINE (NEURO) FOCUS WITHOUT CONTRAST (02/06/2025 10:37 PM EDT) Anatomical Region Laterality Modality C-spine Magnetic Resonan ce 02/08/2025 1:30 PM EDT Impressions 02/08/2025 1:35 PM EDT 1. Mild degenerative disc disease at multiple levels without significant canal stenosis. 2. Mild right foramina stenosis at C4-C5. 3. Heterogeneous thyroid gland. Thyroid ultrasound recommended for further evaluation. 4. Nonspecific cervical lymph nodes with mildly prominent left level 3 lymph node. Clinical correlation advised. Narrative 02/08/2025 1:35 PM EDT MRI CERVICAL SPINE (NEURO) FOCUS WITHOUT CONTRAST Referring clinician's provided indication for this examination in Epic: Outside Radiology Order TECHNIQUE: MRI CERVICAL SPINE (NEURO) FOCUS WITHOUT CONTRAST Multi-sequence, multi-planar MRI of the cervical spine was performed without intravenous contrast. COMPARISON: None. FINDINGS: CERVICAL SPINE: Alignment and Vertebrae: There is reversal of the cervical lordosis. Alignment is otherwise well maintained without listhesis or angulation. Marrow: No bone marrow replacing lesion. Discs and Endplates: Minimal loss of disc height at C5-C6 and C6-C7. Spinal Cord: No spinal cord compression or signal abnormality. Soft Tissue: No prevertebral edema. Posterior paraspinal soft tissues are unremarkable. Other findings: Mild thickening of the posterior nasopharyngeal soft tissues. Scattered fluid noted in the mastoid tips bilaterally. Multiple cervical lymph nodes are noted, without significant enlargement by size size criteria, a nonspecific finding. T2 hyperintense nodule/lymph node on the left level 3 measuring 11 x 6 x 17 mm, slightly prominent. The thyroid gland is heterogeneous in appearance. Findings by level: C2-C3: No spinal or foraminal stenosis. C3-C4: No spinal or foraminal stenosis. C4-C5: Minimal right uncovertebral squaring. No spinal stenosis. Mild right foraminal stenosis. C5-C6: Minimal disc bulging. No spinal or foraminal stenosis. C6-C7: Mild disc bulging. No spinal or foraminal stenosis. C7-T1: Mild disc bulging. No spinal or foraminal stenosis. Procedure Note Wilian Guardado MD - 02/08/2025 MRI CERVICAL SPINE (NEURO) FOCUS WITHOUT CONTRAST Referring clinician's provided indication for this examination in Epic:Outside Radiology Order TECHNIQUE: MRI CERVICAL SPINE (NEURO) FOCUS WITHOUT CONTRAST Multi-sequence, multi-planar MRI of the cervical spine was performedwithout intravenous contrast. COMPARISON: None. FINDINGS: CERVICAL SPINE: Alignment and Vertebrae: There is reversal of the cervical lordosis.Alignment is otherwise well maintained without listhesis or angulation. Marrow: No bone marrow replacing lesion. Discs and Endplates: Minimal loss of disc height at C5-C6 and C6-C7. Spinal Cord: No spinal cord compression or signal abnormality. Soft Tissue: No prevertebral edema. Posterior paraspinal soft tissues areunremarkable. Other findings: Mild thickening of the posterior nasopharyngeal softtissues. Scattered fluid noted in the mastoid tips bilaterally. Multiplecervical lymph nodes are noted, without significant enlargement by sizesize criteria, a nonspecific finding. T2 hyperintense nodule/lymph node onthe left level 3 measuring 11 x 6 x 17 mm, slightly prominent. The thyroidgland is heterogeneous in appearance. Findings by level: C2-C3: No spinal or foraminal stenosis. C3-C4: No spinal or foraminal stenosis. C4-C5: Minimal right uncovertebral squaring. No spinal stenosis. Mildright foraminal stenosis. C5-C6: Minimal disc bulging. No spinal or foraminal stenosis. C6-C7: Mild disc bulging. No spinal or foraminal stenosis. C7-T1: Mild disc bulging. No spinal or foraminal stenosis. IMPRESSION: 1. Mild degenerative disc disease at multiple levels without significantcanal stenosis. 2. Mild right foramina stenosis at C4-C5. 3. Heterogeneous thyroid gland. Thyroid ultrasound recommended forfurther evaluation. 4. Nonspecific cervical lymph nodes with mildly prominent left level 3lymph node. Clinical correlation advised. Maddie Hernandez MD IMG MR XSPECIALTY Final Result from Last 3 Months Insurance [employer] OUT OF STATE PPO GENERIC COMMERCIAL BLUE CR[employer] OUT OF [place] [id number] BLUE CROSS OUT OF STATE PPO GENERIC COMMERCIAL BLUE CROSS OUT OF STATE PPO GENERIC COMMERCIAL [facility] OUT OF STATE [place] [id number] [facility] OUT OF STATE PPO GENERIC COMMERCIAL [place] [id number] Care Teams Career Development Coordinator/Teacher Relationship Specialty Start Date End Date Pcp, Unknown PCP - General 06/10/24 Additional Source Comments The information contained in this document represents components of the legal health record. It is not the complete legal health record.[facility]
--- OUTSIDE RECORDS SUMMARY | 2025-03-16 06:49 | XMS_ITS | Encounter Summary ---
Author Organization [facility] Address [address] [place] [address] Care Team Providers Care Dental Laboratory Assistant Name Role Phone Manolo Lin MD Primary Care Provider [phone] Slick Ruiz MD Unavailable Source Comments In the event that this information is protected by federal Confidentiality ofSubstance Use DisorderPatient Records, 42 CFR Part 2 prohibits theunauthorized disclosure of these records.[facility] Encounter Details Date Type Department Care Team (Late st Contact Info) Description 10/21/2024 Procedure Pass [place] Radiology [address] [facility] [address] [place] [address] Social History Tobacco Use Types Packs/Day Years [...] on filedocumented in this encounter Care Teams Dental Laboratory Assistant Relationship Specialty Start Date End Date Manolo Lin MD [address] [facility] [address] [place], [place] [phone] PCP - General Pediatrics 05/30/11 [place] [address] [address] [place] [address] System Generated Attributed Clinician 01/23/24 documented as of this encounter
--- OUTSIDE RECORDS SUMMARY | 2025-03-16 06:49 | XMS_ITS | Encounter Summary ---
Author Organization [facility] Address [address] [place] [address] Care Team Providers Care Registered Route Associate Name Role Phone Manolo Lin MD Primary Care Provider [phone] Slick Ruiz MD Unavailable [phone] Source Comments In the event that this information is protected by federal Confidentiality ofSubstance Use DisorderPatient Records, 42 CFR Part 2 prohibits theunauthorized disclosure of these records.[facility] Encounter Details Date Type Department Care Team (Late st Contact Info) Description 12/15/2019 Procedure Pass [place] [facility] [address] [place] [address] Social History Tobacco Use Types [...] documented as of this encounter Care Teams Registered Route Associate Relationship Specialty Start Date End Date Manolo Lin MD [address] [place], [place] [phone] PCP - General Pediatrics 05/30/11 [place] [address] [address] System Generated Attributed Clinician 01/23/24 documented as of this encounter
--- OUTSIDE RECORDS SUMMARY | 2025-03-16 06:49 | XMS_ITS | Encounter Summary ---
Author Organization [facility] Address [address] [place] [address] Care Team Providers Care Director Epidemiology Name Role Phone Manolo Lin MD Primary Care Provider [phone] Slick Ruiz MD Unavailable [phone] Source Comments In the event that this information is protected by federal Confidentiality ofSubstance Use DisorderPatient Records, 42 CFR Part 2 prohibits theunauthorized disclosure of these records.[facility] Encounter Details Date Type Department Care Team (Late st Contact Info) Description 09/05/2024 Questionnaire Series Submission Initial Department [address] [place], [place] [phone] Provider Sarah Vyas DO NOT EDIT THIS [...] on filedocumented in this encounter Care Teams Director Epidemiology Relationship Specialty Start Date End Date Manolo Lin MD [address] [facility] [address] [place], [place] [phone] PCP - General Pediatrics 05/30/11 [place] [address] [address] [phone] System Generated Attributed Clinician 01/23/24 documented as of this encounter
--- OUTSIDE RECORDS SUMMARY | 2025-03-16 06:49 | XMS_ITS | Encounter Summary ---
Author Organization [facility] Address [address] [place] [address] Care Team Providers Care Applications Scientist Name Role Phone Manolo Lin MD Primary Care Provider [phone] Slick Ruiz MD Unavailable [phone] Source Comments In the event that this information is protected by federal Confidentiality ofSubstance Use DisorderPatient Records, 42 CFR Part 2 prohibits theunauthorized disclosure of these records.[facility] Encounter Details Date Type Department Care Team (Late st Contact Info) Description 11/14/2019 Procedure [place] [address] [place] [address] Social History Tobacco Use Types [...] documented as of this encounter Care Teams Applications Scientist Relationship Specialty Start Date End Date Manolo Lin MD [address] [place] [address] PCP - General Pediatrics 2/17/12 [place] [address] [address] System Generated Attributed Clinician 01/23/24 documented as of this encounter
--- OUTSIDE RECORDS SUMMARY | 2025-03-16 06:49 | XMS_ITS | Clinical Summary ---
Author Organization [employer] [facility] Address [address] [place] [address] Care Team Providers Care Internal Wholesaler Name Role Phone Unavailable Primary Care Provider [...] on file Legal Sex Female 12:02 PM REGULATORY COMPLIANCE SPECIALIST Gender Identity Not on file Sexual Orientation Not on file Last Filed Vital Signs Vital Sign Reading Time Taken Comments Blood Pressure 126/67 03/08/2022 12:31 PM REGULATORY COMPLIANCE SPECIALIST Pulse 55 03/08/2022 12:31 PM REGULATORY COMPLIANCE SPECIALIST Temperature 36.3 C (97.4 F) 03/08/2022 12:31 PM REGULATORY COMPLIANCE SPECIALIST Respiratory Rate 16 03/08/2022 12:3 1 PM REGULATORY COMPLIANCE SPECIALIST Oxygen Saturation 99% 03/08/2022 12: 31 PM REGULATORY COMPLIANCE SPECIALIST Inhaled Oxygen Concentration - - Weight 70.2 kg (154 lb 12.8 oz) 04/02/2021 5:57 PM REGULATORY COMPLIANCE SPECIALIST Height 170.2 cm (5' 7 ) 04/02/2021 5:57 PM REGULATORY COMPLIANCE SPECIALIST Body Mass Index 24.25 04/02/2021 5:57 PM REGULATORY COMPLIANCE SPECIALIST Plan of Treatment Health Maintenance Due Date Last Done Comments Annual Physical 2003 Insurance [facility] PPO [facility] PPO [place] [address]
--- OUTSIDE RECORDS SUMMARY | 2025-03-16 06:49 | XMS_ITS | Clinical Summary ---
Author Organization [facility] Address [address] [place] [address] Care Team Providers Care It Investment/Portfolio Manager Name Role Phone Manolo Lin MD Primary Care Provider [phone] Slick Ruiz MD Unavailable [phone] Source Comments In the event that this is information that is protected by federal Confidentiality of Substance UseDisorder Patient Records, 42 CFR Part 2 prohibits the unauthorized disclosure of these records.[facility] Allergies No known active allergies Medications levocetirizine dihydrochloride (XYZAL ORAL) Take 1 tablet by mouth daily as needed. Active HYDROcodone-acetamin ophen 5-325 mg per tabletIndications:S/ P left knee arthroscopy Take 1-2 tablets by mouth every 6 (six) hours as needed for pain. 30 tablet 5 Active ondansetron-ODT 4 mg disintegrating tabletIndications:S/ P left knee arthroscopy Take 1 tablet by mouth every 8 (eight) hours as needed for nausea. 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 Left anterior cruciate ligament tear 11/28/2019 Overview (11/28/2019): Added automatically from request for surgery [id number] Closed fracture of left distal radius 10/02/2017 Crushed finger 08/21/2016 Nondisplaced fracture of phalanx of finger 08/21 Viral upper respiratory tract infection 03/14/20 12 Acute bronchospasm 03/14/2012 Family History Medical History Relation Name Comments No Known Problems Father No Known Problems Mother Relation Name Status Comments Father Alive Mother Alive Social History Tobacco Use Types Packs/Day Years Used Date Smoking Tobacco: Never Passive Smoke Exposure: Never Smokeless Tobacco: Never Tobacco Cessation:Counseling Given: Not Answered Alcohol Use Standard Drinks/Week Comments Yes 0 (1 standard drink = 0.6 oz pur e alcohol) socially, seldom Comments No Sex and Gender Information Value Date Recorded Sex Assigned at Not on file Legal Sex Female 4:17 AM CDT Gender Identity Not on file Sexual Orientation Not on file Last Filed Vital Signs Vital Sign Reading Time Taken Comments Blood Pressure 138/53 11/21/2024 8:10 AM CDT Pulse 77 11/21/2024 8:10 AM CDT Temperature 37.1 C (98.7 F) 11/21/2024 8:10 AM CDT Respiratory Rate 17 11/21/2024 8:10 AM CDT Oxygen Saturation 98% 11/18/2024 2:44 PM CDT Inhaled Oxygen Concentration - - Weight 75.8 kg (167 lb) 11/21/2024 8:10 AM CDT Height 172.7 cm (5' 8 ) 11/21/2024 8:10 AM CDT Body Mass Index 25.39 11/21/2024 8:10 AM CDT Plan of Treatment Health Maintenance Due Date Last Done Comments HIV SCREENING 2018 Chlamydia Screening-Yearly 2019 Gonorrhea Screening-Yearly 2019 Diabetes Screening 2021 HEPATITIS C SCREENING 2021 LIPID TESTING 2021 Annual Well Visit (4-21 y/o) 11/29/2022, 09/29/2020, 09/21/2019, Additional history exists CERVICAL CANCER SCREENING 2024 DTAP/TDAP/TD (7 - Td or Tdap) 05/29/2024 05/29/2014, 06/05/2008, 10/21/2004, Additional history exists COVID-19 VACCINE (2024- season) 2024 08/17/2021, 08/13/2020, 07/23/2020 INFLUENZA (#1) 2024 01/05/2021, 01/11, 03/05/2019, Additional history exists Pneumococcal 0-49 Aged Out 07/22/2004, , 2003, Additional history exists No longer eligible based on patient's age to complete this topic HPV Completed 06/18/2015, 05/29/2014 MENINGOCOCCAL CONJUGATE (MCV4) Completed 09/21/2019, 05/29/2014 MENINGOCOCCAL B (MENB) Completed 11/29/2021, 2020 Medical Devices Implanted Type Area Database Architect Device Identifier Shelf Expiration Date Model / Serial / Lot Implant Screw Advance Adri Interference [id number] Implanted:Qty: 1 on 12/15/2019 by Karthikeyan Lira MD at [facility] Screw Left: Knee [employer] 06/10/2022 [id number] / / [id number] Implant Screw Interference Adri 8x23mm [id number] Implanted:Qty: 1 on 12/15/2019 by Karthikeyan Lira MD at [facility] Screw Left: Knee [employer] 04/12/2022 [id number] / / [id number] Insurance [facility] PPO [facility] P[facility] BS [facility] PPO * Guarantor: ISHMAEL BENNETT Account Type Relation to Patient Date of Phone Billing Address [facility] Father [address] [place] [address] [facility] PPO [facility] PPO * Guarantor: Yeny Bennett Account Type Relation to Patient Date of Phone Billing Address [facility] Self [address] [place] [address] [facility] PPO Care Teams It Investment/Portfolio Manager Relationship Specialty Start Date End Date Manolo Lin MD [address] [facility] [address] [place] [address] PCP - General Pediatrics 05/30/11 [place] [address] [address] [facility] [address] [place] [phone] System Generated Attributed Clinician 01/23/24
--- OUTSIDE RECORDS SUMMARY | 2025-03-16 06:49 | XMS_ITS | Encounter Summary ---
Author Organization [facility] Address [address] [place] [address] Care Team Providers Care Tankroom Tender Name Role Phone Manolo Lin MD Primary Care Provider [phone] Slick Ruiz MD Unavailable [phone] Source Comments In the event that this information is protected by federal Confidentiality ofSubstance Use DisorderPatient Records, 42 CFR Part 2 prohibits theunauthorized disclosure of these records.[facility] Encounter Details Date Type Department Care Team (Late st Contact Info) Description 09/05/2024 Questionnaire Series Submission Initial Department [address] [place], [place] [id number] Provider Sarah Vyas DO NOT EDIT THIS [...] on filedocumented in this encounter Care Teams Tankroom Tender Relationship Specialty Start Date End Date Manolo Lin MD [address] [facility] [address] [place], [place] [phone] PCP - General Pediatrics 05/30/11 [place] [address] [address] [phone] System Generated Attributed Clinician 01/23/24 documented as of this encounter
--- OUTSIDE RECORDS SUMMARY | 2025-03-16 06:49 | XMS_ITS | Encounter Summary ---
Author Organization [facility] Address [address] [place] [address] Care Team Providers Care Music Minister Name Role Phone Manolo Lin MD Primary Care Provider [phone] Slick Ruiz MD Unavailable [phone] Source Comments In the event that this information is protected by federal Confidentiality ofSubstance Use DisorderPatient Records, 42 CFR Part 2 prohibits theunauthorized disclosure of these records.[facility] Encounter Details Date Type Department Care Team (Late st Contact Info) Description 11/11/2024 Procedure Pass [place] [facility] [address] [place] [address] Social History Tobacco Use Types Packs/Day Years Used Date Smoking Tobacco: Never Smokeless Tobacco: Never Alcohol Use Standard Drinks/Week Comments Yes 0 [...] on filedocumented in this encounter Care Teams Music Minister Relationship Specialty Start Date End Date Manolo Lin MD [address] [phone] PCP - General Pediatrics 05/30/11 [place] [address] [address] [phone] System Generated Attributed Clinician 01/23/24 documented as of this encounter
--- OUTSIDE RECORDS SUMMARY | 2025-03-16 06:49 | XMS_ITS | Encounter Summary ---
Author Organization [facility] Address [address] [facility] [address] [place] [phone] Phone Care Team Providers Care Eyelet Operator Name Role Phone Pcp, Unknown Primary Care Provider Unavailabl e Encounter Details Date Type Department Care Team (Late st Contact Info) Description 01/30/2025 Procedure Pass [facility] [address] [place] [address] Social History Tobacco Use Types Packs/Day Years [...] on filedocumented in this encounter Care Teams Eyelet Operator Relationship Specialty Start Date End Date Pcp, Unknown PCP - General 06/10/24 documented as of this encounter Additional Source Comments The information contained in this document represents components of the legal health record. It is not the complete legal health record.[facility]
--- OUTSIDE RECORDS SUMMARY | 2025-03-16 06:49 | XMS_ITS | Encounter Summary ---
Author Organization [facility] Address [address] [place] [address] Care Team Providers Care Patrol Officer Name Role Phone Manolo Lin MD Primary Care Provider [phone] Slick Ruiz MD Unavailable [phone] Source Comments In the event that this information is protected by federal Confidentiality ofSubstance Use DisorderPatient Records, 42 CFR Part 2 prohibits theunauthorized disclosure of these records.[facility] Encounter Details Date Type Department Care Team (Late st Contact Info) Description 10/03/2024 Orders Only [place] [facility] [address] [place] [address] [place] [address] [address] Social History Tobacco Use Types Packs/Day [...] as of this encounter Visit Diagnoses Diagnosis Acute pain of left knee- Primary documented in this encounter Care Teams Patrol Officer Relationship Specialty Start Date End Date Manolo Lin MD [address] [phone] PCP - General Pediatrics 05/30/11 [place] [address] [phone] System Generated Attributed Clinician 01/23/24 documented as of this encounter
--- OUTSIDE RECORDS SUMMARY | 2025-03-16 06:49 | XMS_ITS | Encounter Summary ---
Author Organization [facility] Address [address] [place] [address] Care Team Providers Care Auditor Supervisor Name Role Phone Manolo Lin MD Primary Care Provider [phone] Slick Ruiz MD Unavailable [phone] Source Comments In the event that this information is protected by federal Confidentiality ofSubstance Use DisorderPatient Records, 42 CFR Part 2 prohibits theunauthorized disclosure of these records.[facility] Encounter Details Date Type Department Care Team (Late st Contact Info) Description 09/05/2024 Questionnaire Series Submission Initial Department [address] [place], [place] [phone] Provider Sarah Vyas DO NOT EDIT THIS [...] on filedocumented in this encounter Care Teams Auditor Supervisor Relationship Specialty Start Date End Date Manolo Lin MD [address] [facility] [address], [place] [phone] PCP - General Pediatrics 05/30/11 [place] [address] [address] [phone] System Generated Attributed Clinician 01/23/24 documented as of this encounter
--- OUTSIDE RECORDS SUMMARY | 2025-03-16 06:50 | XMS_ITS | Encounter Summary ---
Author Organization [facility] Address [address] [place] [address] Care Team Providers Care As400 Developer Name Role Phone Manolo Lin MD Primary Care Provider [phone] Dayana Meek MD Primary Care Provider [phone] Jameson Stone MD Unavailable [phone] Damari Perez MD Unavailable Unavailable Nurse, Nr RN Unavailable Unavailable Luis Eduardo Meneses MD Unavailable [phone] Charlotte Kelsey MD Unavailable [phone] Encounter Details Date Type Department Care Team (Late st Contact Info) Description 02/29/[address] [facility] [address] [place] [address] Damari Perez MD Social History Tobacco Use Types Packs/Day Years Used Date Smoking Tobacco: Never Assessed Sex and Gender Information Value Date Recorded Sex Assigned at Not on file Gender Identity Not on file Sexual Orientation Not on file documented as of this encounter Plan of Treatment Not on file documented as of this encounter Visit Diagnoses Not on filedocumented in this encounter Care Teams As400 Developer Relationship Specialty Start Date End Date Manolo Lin MD [address] [place] [address] PCP - General 01/29/06 Dayana Meek MD [address] [place], [place] [address] PCP - General 02/08/05 01/28/06 Jameson Stone MD [address] [place] [address] 09/29/09 Damari Perez MD [address] [place] [address] 09/29/09 Nurse, Nr, RN 09/29/09 Luis Eduardo Meneses MD [address] [place] [address] 09/29/09 Charlotte Kelsey MD [address] [place] [address] 09/29/09 documented as of this encounter
--- OUTSIDE RECORDS SUMMARY | 2025-03-16 06:50 | XMS_ITS | Clinical Summary ---
Author Organization [facility] Address [address] [facility] [place] [address] Care Team Providers Care Application Assistant Name Role Phone Manolo Lin MD Primary Care Provider [phone] Jameson Stone MD Unavailable [phone] Damari Perez MD Unavailable Unavailable Nurse, Nr RN Unavailable Unavailable Luis Eduardo Meneses MD Unavailable [phone] Charlotte Kelsey MD Unavailable [phone] Source Comments You are receiving this document as you are listed as the PCP, follow-upprovider, or the patient hasbeen referred to you for consultation. This is incompliance with [facility] Transitions of Care Requirement. Note: Specific treatmentrecords and notes about services for mental health, developmental disabilities,alcoholism, drug dependence, or substance abuse, you will need to contact theMedical Records Department at [phone] and complete a separate Release ofAuthorization form. They are also available to answer other questions.[facility] Allergies No known active allergies Medications Please verify all current medications with the patient. 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 Overview (01/29/2006): R > L Hypermetropia Overview (01/29/2006): R > L Immunizations Name Administration Dates Next Due DTaP (Daptacel) <7 yrs (Inactive) 10/21/2004 DTaP / HEP B / IVP (Pediarix) 2003, 004,2003 HIB (Unspecified) 04/22/2004,2003,06/19/19 Influenza Vaccine 6-35 Mos 02/08/2005 MMR 04/22/2004 Pneumococcal Conjugate PCV7 07/22/2004 Pneumococcal Polysaccharide PPSV23 2003, Varicella 07/22/2004 Social History Tobacco Use Types Packs/Day Years Used Date Smoking Tobacco: Never Smokeless Tobacco: Never Sex and Gender Information Value Date Recorded Sex Assigned at Not on file Gender Identity Not on file Sexual Orientation Not on file Last Filed Vital Signs Vital Sign Reading Time Taken Comments Blood Pressure - - Pulse 92 04/22/2005 3:34 PM STUDENT EDUCATION SPECIALIST Temperature 36.8 C (98.3 F) 04/22/2005 3:34 PM STUDENT EDUCATION SPECIALIST Respiratory Rate 28 04/22/2005 3:34 PM STUDENT EDUCATION SPECIALIST Oxygen Saturation - - Inhaled Oxygen Concentration - - Weight 63.5 kg (140 lb) 03/08/2019 9:54 AM STUDENT EDUCATION SPECIALIST Height 167.6 cm (5' 6 ) 03/08/2019 9:54 AM STUDENT EDUCATION SPECIALIST Body Mass Index 22.6 03/08/2019 9:54 AM STUDENT EDUCATION SPECIALIST Plan of Treatment Health Maintenance Due Date Last Done Comments ANNUAL BMI COUNSELING 2005 HIV SCREEN 2018 VACCINE: HPV (CDC RULES) (1 - 3-dose series) 2018 ANNUAL DEPRESSION SCREENING,ADULT 03/08/2020 03/08/2019 ADULT VACCINE: TETANUS( TD) BOOSTER,EVERY 10 YR 2022 CHOL SCREENING: EVERY 5 YEARS 2023 CA SCREENING: PAP SMEAR, EVERY 3 YEARS 2024 Covid-19 Vaccine ( - 2024-2 6 season) 2024 INFLUENZA VACCINE (#1) 2024 ADULT VACCINE: SHINGRIX (1 o f 2) 2053 PNEUMOCOCCAL VACCINE Aged Out 07/22/2004, 2003, 2003 No longer eligible based on patient's age to complete this topic PEDS RSV < 20 MON Aged Out No longer eligible based on patient's age to complete this topic Care Teams Application Assistant Relationship Specialty Start Date End Date Manolo Lin MD [address] [place] [address] PCP - General 01/29/06 Jameson Stone MD [address] [place] [address] 09/29/09 Damari Perez MD [address] [place] [address] 09/29/09 Nurse, Nr, RN 09/29/09 Luis Eduardo Meneses MD [address] [place] [address] 09/29/09 Charlotte Kelsey MD [address] [place] [address] 09/29/09
== END 2025-03-16 06:47 | disposition home or self-care (01) ==
LOC: HO.UMASIMG 06:46
PROVIDERS: Visit Provider Student in an Organized Health Care Education/Training Program
DX: M54.2 Cervicalgia (principal); E04.1 Nontoxic single thyroid nodule
CPT/HCPCS: 76536

== ENCOUNTER → 2025-03-16 11:16 | Outpatient (BNV) | payer BC, OTHER, SELFPAY | PROVIDERS: Visit Provider Radiology Diagnostic Radiology | DX: E04.1 Nontoxic single thyroid nodule (principal) | CPT/HCPCS: 76536 ==